=== PATIENT | male | born 1995 | race Caucasian/White ===

== ENCOUNTER 2019-07-02 14:42 | Emergency (ER) | payer OTHER ==
[~2019-07-02] VITALS: Ht 185.4 cm; Wt 79.9 kg
[~2019-07-02 14:42] MED LIST: CALC625T68 PO; HYDR26CR PR
[2019-07-02 15:03] VITALS: BP 126/65; PULSE 71; RESP 19; Ht 185.4 cm; Wt 79.9 kg
== END 2019-07-02 16:24 | disposition home or self-care (01) ==
LOC: FTE 14:42
DX: K64.9 Unspecified hemorrhoids (principal)
CPT/HCPCS: 99284